=== PATIENT | female | born 1930 | race Caucasian/White ===

== ENCOUNTER 2017-12-07 11:27 | Emergency (ER) | payer OTHER ==
[~2017-12-07] VITALS: Ht 157.5 cm; Wt 64.8 kg
[~2017-12-07 11:27] MED LIST: ACETAMINOPHEN325 M1 PO; APRESOLINE20 MG/ML IM; ASPIR-LOW81 MG PO; ATARAX,VISTARIL25 MG PO; AUGMENTIN875 MG PO; BISAC-EVAC10 MG PR; DICYCLOMINE HCL20 MG PO; DOCUSATE SODIU100 MG PO; HEPARIN SO5000 UNITS SC; HYDROXYZINE HCL25 MG PO; HYOSCYAMINE0.125 M2 PO; KETOCONAZOLE60 GM TP; LOSARTAN POTAS100 MG PO; METOPROLOL TART25 MG PO; PEPCID20 MG PO; PROTONIX40 MG PO; SENNA PLUS TAB1 EACH PO; SERTRALINE HCL50 MG PO; TRAMADOL HCL50 MG PO; ZOFRAN4 MG/2 ML IM
[2017-12-07 12:30] LABS: HEMATOCRIT 37.4 % (36.0-46.0); HEMOGLOBIN 12.6 G/DL (11.9-15.5); MCH 30.1 PG (29.0-34.0); MCHC 33.7 G/DL (30.0-36.0); MCV 89.3 FL (83-99); PLATELET COUNT 220 K/uL (156-360); RBC DIS.WIDTH-CV 13.4 % (11.8-14.6); RBC DIS.WIDTH-SD 43.6 % (39-53); RED BLOOD COUNT 4.19 M/uL (3.80-5.20); WHITE BLOOD COUNT 9.8 K/uL (4.1-10.2)
[2017-12-07 12:40] LABS: ALBUMIN 4.1 g/dL (3.2-4.8); CHLORIDE 107 mEq/L (99-109); POTASSIUM 4.9 mEq/L (3.7-5.4)
[2017-12-07 12:41] LABS: SODIUM 138 mEq/L (136-147)
[2017-12-07 12:43] LABS: GLUCOSE 116 mg/dL (70-99); TOTAL PROTEIN 6.8 g/dL (6.4-8.3)
[2017-12-07 12:45] LABS: TOTAL BILIRUBIN 0.7 mg/dL (0.0-1.0)
[2017-12-07 12:46] LABS: ALKALINE PHOSPHATASE 96 IU/L (3-129); CREATININE 1.1 mg/dL (0.6-1.3); GFR ESTIMATE (CALCULATED) 50 mL/min/
[2017-12-07 12:48] LABS: AST (GOT) 17 IU/L (2-34); UREA NITROGEN (BUN) 26 mg/dL (9-23)
[2017-12-07 12:49] LABS: ALT (GPT) 13 IU/L (3-49)
[2017-12-07 12:51] LABS: TROP-I INTERPRETATION NEGATIVE; TROPONIN-I 0.04 ng/mL (0.0-0.30)
[2017-12-07 16:03] VITALS: BP 175/81
== END 2017-12-07 16:04 | disposition home or self-care (01) ==
LOC: EME 11:27
PROVIDERS: Emergency Medicine Emergency Medical Services
DX: R55 Syncope and collapse (principal); R51 Headache; F41.9 Anxiety disorder, unspecified; F32.9 Major depressive disorder, single episode, unspecified; I10 Essential (primary) hypertension; G43.909 Migraine, unspecified, not intractable, without status migrainosus; Z96.653 Presence of artificial knee joint, bilateral; Z88.5 Allergy status to narcotic agent; Z88.0 Allergy status to penicillin; Z87.891 Personal history of nicotine dependence; E86.0 Dehydration
CPT/HCPCS: 70450; 71045; 80053; 84484; 85027; 93005; 99281; 99285; J7040

== ENCOUNTER 2018-06-04 12:48 | Inpatient (IN) | payer OTHER ==
[~2018-06-04] VITALS: Ht 157.5 cm; Wt 64.5 kg
[2018-06-04 13:58] LABS: BASOPHIL (%) 0.3 % (0-1); EOSINOPHIL (%) 0.6 % (0-5); EOSINOPHIL COUNT 0.1 K/uL (0-0.3); HEMATOCRIT 35.5 % (36.0-46.0); HEMOGLOBIN 12.1 G/DL (11.9-15.5); IMMATURE GRANULOCYTE (%) 0.2 % (0.0-0.7); LYMPHOCYTE (%) 13.6 % (15-42); LYMPHOCYTE COUNT 1.2 K/uL (1.0-2.8); MCHC 34.1 G/DL (30.0-36.0); MCV 87.9 FL (83-99); MONOCYTE (%) 3.9 % (3-12); MONOCYTE COUNT 0.4 K/uL (0-0.8); NEUTROPHIL (%) 81.4 % (45-76); NEUTROPHIL COUNT 7.3 K/uL (1.8-6.4); PLATELET COUNT 197 K/uL (156-360); RBC DIS.WIDTH-CV 13.4 % (11.8-14.6); RBC DIS.WIDTH-SD 43.5 % (39-53); RED BLOOD COUNT 4.04 M/uL (3.80-5.20)
[2018-06-04 14:02] LABS: INTER. NORMALIZED RATIO 1.1
[2018-06-04 14:05] LABS: PTT 24.2 SEC (25-37)
[2018-06-04 14:06] LABS: CHLORIDE 105 mEq/L (99-109); POTASSIUM 4.8 mEq/L (3.7-5.4); SODIUM 139 mEq/L (136-147)
[2018-06-04 14:08] LABS: GLUCOSE 183 mg/dL (70-99)
[2018-06-04 14:12] LABS: CREATININE 1.2 mg/dL (0.6-1.3); GFR ESTIMATE (CALCULATED) 45 mL/min/
[2018-06-04 14:13] LABS: UREA NITROGEN (BUN) 34 mg/dL (9-23)
[2018-06-04 14:19] LABS: TROP-I INTERPRETATION NEGATIVE; TROPONIN-I < 0.01 ng/mL (0.0-0.30)
[2018-06-04] MEDS ORDERED: PERCOCET 5/31 TABLET PO (17:55)
[2018-06-04 22:03] LABS: TROP-I INTERPRETATION NEGATIVE; TROPONIN-I 0.03 ng/mL (0.0-0.30)
[2018-06-04 22:23] VITALS: BP 200/76
[2018-06-05] VITALS (10 sets, daily range): BP systolic 137–182; BP diastolic 50–80
[2018-06-05 03:47] LABS: HEMATOCRIT 32.9 % (36.0-46.0); HEMOGLOBIN 11.4 G/DL (11.9-15.5); MCH 29.9 PG (29.0-34.0); MCHC 34.7 G/DL (30.0-36.0); MCV 86.4 FL (83-99); PLATELET COUNT 187 K/uL (156-360); RBC DIS.WIDTH-CV 13.5 % (11.8-14.6); RBC DIS.WIDTH-SD 42.5 % (39-53); RED BLOOD COUNT 3.81 M/uL (3.80-5.20)
[2018-06-05 03:59] LABS: ALBUMIN 3.7 g/dL (3.2-4.8)
[2018-06-05 04:00] LABS: CHLORIDE 110 mEq/L (99-109); SODIUM 140 mEq/L (136-147)
[2018-06-05 04:02] LABS: TOTAL PROTEIN 6.2 g/dL (6.4-8.3)
[2018-06-05 04:04] LABS: TOTAL BILIRUBIN 0.5 mg/dL (0.0-1.0)
[2018-06-05 04:05] LABS: ALKALINE PHOSPHATASE 84 IU/L (3-129); GLUCOSE 101 mg/dL (70-99)
[2018-06-05 04:06] LABS: CREATININE 1.1 mg/dL (0.6-1.3); GFR ESTIMATE (CALCULATED) 50 mL/min/
[2018-06-05 04:07] LABS: AST (GOT) 19 IU/L (2-34); UREA NITROGEN (BUN) 28 mg/dL (9-23)
[2018-06-05 04:09] LABS: ALT (GPT) 11 IU/L (3-49)
[2018-06-05 04:15] LABS: TROP-I INTERPRETATION NEGATIVE; TROPONIN-I 0.02 ng/mL (0.0-0.30)
[2018-06-05] MEDS ORDERED: LOPRESSOR25 MG PO (14:03)
[2018-06-05] MEDS ORDERED: ATARAX,VISTARIL25 MG PO (14:04)
[2018-06-05] MEDS ORDERED: COZAAR100 MG PO (14:05)
[2018-06-05] MEDS ORDERED: TRAMADOL HCL50 MG PO (14:06)
[2018-06-05] MEDS ORDERED: ZOLOFT50 MG PO (14:07)
[2018-06-05] MEDS ORDERED: TRAZODONE HCL50 MG PO (14:08)
[2018-06-05] MEDS ORDERED: BENTYL20 MG PO (14:09)
[2018-06-05 21:39] LABS: APPEARANCE CLEAR ((CLEAR)); BILIRUBIN NEGATIVE; BLOOD NEGATIVE; COLOR STRAW ((YELLOW)); GLUCOSE (STRIP) NEGATIVE; KETONES NEGATIVE; LEUKOCYTES TRACE; NITRITE NEGATIVE; PROTEIN (STRIP) NEGATIVE; SPECIFIC GRAVITY 1.006 (1.000-1.030); UROBILINOGEN 0.2 MG/DL (0.2-1.0)
[2018-06-05 21:46] LABS: BACTERIA RARE /HPF; EPITHELIAL CELLS 1+ /HPF; MUCUS TRACE /LPF; RED BLOOD CELLS 0-5 /HPF (0-5); UCUL ADDED? YES
[2018-06-06 05:28] VITALS: BP 180/82
[2018-06-06 06:04] VITALS: BP 138/67
[2018-06-06 06:14] LABS: BASOPHIL (%) 0.4 % (0-1); EOSINOPHIL (%) 1.3 % (0-5); EOSINOPHIL COUNT 0.1 K/uL (0-0.3); HEMATOCRIT 35.3 % (36.0-46.0); HEMOGLOBIN 11.8 G/DL (11.9-15.5); IMMATURE GRANULOCYTE (%) 0.5 % (0.0-0.7); LYMPHOCYTE (%) 13.6 % (15-42); LYMPHOCYTE COUNT 1.1 K/uL (1.0-2.8); MCH 29.7 PG (29.0-34.0); MCHC 33.4 G/DL (30.0-36.0); MCV 88.9 FL (83-99); MONOCYTE (%) 9.2 % (3-12); MONOCYTE COUNT 0.7 K/uL (0-0.8); NEUTROPHIL COUNT 5.8 K/uL (1.8-6.4); PLATELET COUNT 185 K/uL (156-360); RBC DIS.WIDTH-CV 13.9 % (11.8-14.6); RBC DIS.WIDTH-SD 45.1 % (39-53); RED BLOOD COUNT 3.97 M/uL (3.80-5.20); WHITE BLOOD COUNT 7.7 K/uL (4.1-10.2)
[2018-06-06 06:32] LABS: CHLORIDE 106 MEQ/L (99-109); GFR ESTIMATE (CALCULATED) 56 mL/min/; GLUCOSE 129 mg/dL (70-99); POTASSIUM 4.1 MEQ/L (3.7-5.4); SODIUM 138 MEQ/L (136-147); UREA NITROGEN (BUN) 16 mg/dL (9-23)
[2018-06-06 07:44] VITALS: BP 128/66
[2018-06-06 11:19] VITALS: BP 140/63
[2018-06-06 15:42] VITALS: BP 123/62
[2018-06-06 18:41] LABS: TROP-I INTERPRETATION NEGATIVE; TROPONIN-I 0.02 ng/mL (0.0-0.30)
[2018-06-06 21:08] VITALS: BP 136/65
[2018-06-07 00:03] VITALS: BP 137/62
[2018-06-07 01:23] LABS: TROP-I INTERPRETATION NEGATIVE; TROPONIN-I 0.02 ng/mL (0.0-0.30)
[2018-06-07 05:03] VITALS: BP 134/64
[2018-06-07 06:40] LABS: TROP-I INTERPRETATION NEGATIVE; TROPONIN-I 0.02 ng/mL (0.0-0.30)
[2018-06-07 07:58] VITALS: BP 121/57
[2018-06-07 11:13] VITALS: BP 115/59
[2018-06-07 15:32] VITALS: BP 131/60
[2018-06-07 20:20] VITALS: BP 126/54
[2018-06-08] VITALS (7 sets, daily range): BP systolic 116–145; BP diastolic 56–74
[2018-06-08 05:32] LABS: BASOPHIL (%) 0.6 % (0-1); EOSINOPHIL (%) 1.8 % (0-5); EOSINOPHIL COUNT 0.1 K/uL (0-0.3); HEMATOCRIT 34.7 % (36.0-46.0); HEMOGLOBIN 11.3 G/DL (11.9-15.5); IMMATURE GRANULOCYTE (%) 0.6 % (0.0-0.7); LYMPHOCYTE (%) 11.6 % (15-42); LYMPHOCYTE COUNT 0.7 K/uL (1.0-2.8); MCH 29.8 PG (29.0-34.0); MCHC 32.6 G/DL (30.0-36.0); MCV 91.6 FL (83-99); MONOCYTE (%) 8.2 % (3-12); MONOCYTE COUNT 0.5 K/uL (0-0.8); NEUTROPHIL (%) 77.2 % (45-76); NEUTROPHIL COUNT 4.8 K/uL (1.8-6.4); PLATELET COUNT 173 K/uL (156-360); RBC DIS.WIDTH-CV 13.9 % (11.8-14.6); RBC DIS.WIDTH-SD 46.8 % (39-53); RED BLOOD COUNT 3.79 M/uL (3.80-5.20); WHITE BLOOD COUNT 6.2 K/uL (4.1-10.2)
[2018-06-08 06:09] LABS: CHLORIDE 105 MEQ/L (99-109); CREATININE 1.2 MG/DL (0.6-1.3); GFR ESTIMATE (CALCULATED) 45 mL/min/; GLUCOSE 111 mg/dL (70-99); POTASSIUM 4.7 MEQ/L (3.7-5.4); SODIUM 137 MEQ/L (136-147); UREA NITROGEN (BUN) 24 mg/dL (9-23)
[2018-06-09 03:42] VITALS: BP 160/77
[2018-06-09 08:03] VITALS: BP 111/62
[2018-06-09 10:51] VITALS: BP 123/63
[2018-06-09] MEDS ORDERED: AMLODIPINE BESY10 MG PO (11:52)
[2018-06-09] MEDS ORDERED: TRAMADOL HCL50 MG PO (11:56)
[2018-06-09] MEDS ORDERED: HYDROMORPHONE HC2 MG PO (11:56)
[2018-06-09] MEDS ORDERED: METOPROLOL TART25 MG PO (11:58)
[2018-06-09] MEDS ORDERED: COLACE100 MG PO (12:06)
[2018-06-09] MEDS ORDERED: SENNA8.6 MG PO (12:07)
[2018-06-09 15:38] VITALS: BP 134/65
== END 2018-06-09 17:33 | disposition home health service (06) | DRG 206 ==
LOC: EME 12:48 → ENRESERV 19:03 → EDOF 20:38 → 3EAST 20:38 → CANRESERV 20:40 → ENRESERV 20:40 → 3EAST 20:46
PROVIDERS: Emergency Medicine; Hospitalist; Internal Medicine
DX: S22.31XA Fracture of one rib, right side, initial encounter for closed fracture (principal); J98.11 Atelectasis; F33.9 Major depressive disorder, recurrent, unspecified; I16.0 Hypertensive urgency; W19.XXXA Unspecified fall, initial encounter; W22.03XA Walked into furniture, initial encounter; I12.9 Hypertensive chronic kidney disease with stage 1 through stage 4 chronic kidney disease, or unspecified chronic kidney disease; N18.3 Chronic kidney disease, stage 3 (moderate); R09.02 Hypoxemia; R13.10 Dysphagia, unspecified; Z96.653 Presence of artificial knee joint, bilateral; G89.29 Other chronic pain; F41.9 Anxiety disorder, unspecified; Z80.0 Family history of malignant neoplasm of digestive organs; Z85.3 Personal history of malignant neoplasm of breast; Z90.710 Acquired absence of both cervix and uterus; Z87.891 Personal history of nicotine dependence; Z90.12 Acquired absence of left breast and nipple; Z88.0 Allergy status to penicillin; Z88.5 Allergy status to narcotic agent; Z88.1 Allergy status to other antibiotic agents
CPT/HCPCS: 70450; 71045; 71260; 73552; 73564; 74220; 80048; 80053; 81003; 82948; 84484; 85025; 85027; 85610; 85730; 87086; 92526 GN; 92610 GN; 93005; 94799; 97530 GP; 99281; 99285; G8978 GP CJ; G8980 GP CH; G8987 GO CI; G8988 GO CH; J0360; J1644; J2405; J3010; J7030